=== PATIENT | female | born 1995 ===

== ENCOUNTER → 2020-11-09 | Outpatient (CLI) | payer OTHER | END | disposition home or self-care (01) | LOC: PRENATAL 10:19 | PROVIDERS: ATTEND Obstetrics & Gynecology Maternal & Fetal Medicine | DX: O35.0XX1 Maternal care for (suspected) central nervous system malformation in fetus, fetus 1 (principal); O35.3XX1 Maternal care for (suspected) damage to fetus from viral disease in mother, fetus 1; O98.512 Other viral diseases complicating pregnancy, second trimester; O60.02 Preterm labor without delivery, second trimester; Z36.89 Encounter for other specified antenatal screening; Z3A.25 25 weeks gestation of pregnancy ==

== ENCOUNTER 2021-01-13 03:42 | Outpatient (CLI) | payer OTHER | END 2021-01-13 12:50 | disposition home or self-care (01) | LOC: OBS/DEL 03:42 | PROVIDERS: ATTEND Obstetrics & Gynecology | DX: O60.03 Preterm labor without delivery, third trimester (principal); Z3A.31 31 weeks gestation of pregnancy ==

== ENCOUNTER 2021-01-17 13:11 | Inpatient (IN) | payer OTHER ==
[~2021-01-17] VITALS: Ht 160 cm; Wt 88.9 kg
[2021-01-17] MEDS ORDERED: PRENATAL TABLE1 EAC1 PO (13:43)
[2021-01-17] MEDS ORDERED: FLUOXETINE HCL20 MG PO (13:45)
== END 2021-01-19 13:38 | disposition home or self-care (01) | DRG 833 ==
LOC: LDR 13:11 → OB/GYN 01-18 08:11
PROVIDERS: ADMIT Obstetrics & Gynecology; ATTEND Obstetrics & Gynecology
PROC: 4A1HXFZ Monitoring of Products of Conception, Cardiac Rhythm, External Approach (ICD-10-PCS; principal; 2021-01-17)
DX: O13.3 Gestational [pregnancy-induced] hypertension without significant proteinuria, third trimester (principal); O24.410 Gestational diabetes mellitus in pregnancy, diet controlled; O99.343 Other mental disorders complicating pregnancy, third trimester; F32.9 Major depressive disorder, single episode, unspecified; Z3A.34 34 weeks gestation of pregnancy

== ENCOUNTER 2021-02-03 13:33 | Inpatient (IN) | payer OTHER ==
[~2021-02-03] VITALS: Ht 160 cm; Wt 89.8 kg
[~2021-02-03 13:33] MED LIST: FLUOXETINE HCL20 MG PO; PRENATAL TABLE1 EAC1 PO
[2021-02-03] MEDS ORDERED: VISTARIL50 MG (15:20)
[2021-02-09] MEDS ORDERED: IBUPROFEN600 MG PO (08:06)
[2021-02-09] MEDS ORDERED: CODE1TAB37 PO (08:06)
== END 2021-02-09 18:39 | disposition home or self-care (01) | DRG 785 ==
LOC: LDR 13:33 → SURG-SUITE 13:33 → OB/GYN 02-04 11:01 → SURG-SUITE 02-05 01:32
PROVIDERS: ADMIT Obstetrics & Gynecology; ATTEND Obstetrics & Gynecology
PROC: 4A1HXFZ Monitoring of Products of Conception, Cardiac Rhythm, External Approach (ICD-10-PCS; 2021-02-03)
PROC: 0UB50ZZ Excision of Right Fallopian Tube, Open Approach (ICD-10-PCS; 2021-02-05)
PROC: 10D00Z1 Extraction of Products of Conception, Low, Open Approach (ICD-10-PCS; principal; 2021-02-05 21:00)
DX: O62.1 Secondary uterine inertia (principal); O14.04 Mild to moderate pre-eclampsia, complicating childbirth; O13.4 Gestational [pregnancy-induced] hypertension without significant proteinuria, complicating childbirth; O99.892 Other specified diseases and conditions complicating childbirth; N83.8 Other noninflammatory disorders of ovary, fallopian tube and broad ligament; O24.420 Gestational diabetes mellitus in childbirth, diet controlled; O99.824 Streptococcus B carrier state complicating childbirth; Z3A.36 36 weeks gestation of pregnancy; Z37.0 Single live birth